=== PATIENT | female | born 1950 | race Caucasian/White ===

== ENCOUNTER 2018-04-25 14:03 | Day surgery (SDC) | payer MEDICARE, BC ==
[2018-04-25] MEDS ORDERED: DEXAMETHASONE SOD PHOS PF 10 MG/ML SOL IJ ONE (14:55)
[2018-04-25] MEDS ORDERED: BUPIVACAINE HCL 0.25% MPF 30 ML SOL INFIL ONE (14:56)
[2018-04-25 15:12] VITALS: RESP 20
[2018-04-25 15:18] VITALS: PULSE 60
[2018-04-25 15:30] VITALS: BP 147/78; TEMP 98.6; O2SAT 99
== END 2018-04-25 15:52 | disposition home or self-care (01) | DRG 552 ==
LOC: SURG 14:03
PROVIDERS: ATTEND Nurse Anesthetist, Certified Registered
DX: M51.17 Intervertebral disc disorders with radiculopathy, lumbosacral region (principal)
CPT/HCPCS: J1100

== ENCOUNTER 2018-05-10 13:26 | Day surgery (SDC) | payer MEDICARE, BC ==
[2018-05-10] MEDS ORDERED: BUPIVACAINE HCL 0.25% MPF 30 ML SOL INFIL ONE (13:56)
[2018-05-10] MEDS: TRIAMCINOLONE ACETONIDE 40 MG/ML SUS ONE ×3 (14:01→14:06)
[2018-05-10 14:05] VITALS: O2SAT 98
[2018-05-10 14:18] VITALS: BP 143/80; PULSE 61; RESP 16; TEMP 99
== END 2018-05-10 14:52 | disposition home or self-care (01) | DRG 554 ==
LOC: SURG 13:26
PROVIDERS: ATTEND Nurse Anesthetist, Certified Registered
DX: M12.88 Other specific arthropathies, not elsewhere classified, other specified site (principal)
CPT/HCPCS: J3300